=== PATIENT | female | born 1990 | race Caucasian/White ===

== ENCOUNTER 2016-10-18 19:03 | Emergency (ER) | payer MEDICAID ==
[~2016-10-18 19:03] MED LIST: NOCURR
== END 2016-10-18 19:58 | disposition left against medical advice (07) ==
LOC: EMS 19:05
DX: S89.90XA Unspecified injury of unspecified lower leg, initial encounter (principal); V89.2XXA Person injured in unspecified motor-vehicle accident, traffic, initial encounter; Y93.89 Activity, other specified; Y92.89 Other specified places as the place of occurrence of the external cause; Y99.8 Other external cause status; Z53.21 Procedure and treatment not carried out due to patient leaving prior to being seen by health care provider